=== PATIENT | female | born 1955 | race Two or more races ===

== ENCOUNTER 2023-11-05 01:01 | Inpatient (IN) | payer MEDICAID, OTHER ==
[2023-11-05] VITALS (16 sets, daily range): BP systolic 108–148; BP diastolic 61–80; PULSE 54–69; RESP 12–20; TEMP 97.9–98.6; O2SAT 93–98
[~2023-11-05] VITALS: Ht 165.1 cm; Wt 116.2 kg
[2023-11-05 01:44] LABS: Basophils # (auto) 0.1 10 ^3/uL (0-0.2); Basophils % (auto) 1.2 % (0.0-2.0); Eosinophils # (auto) 0.1 10 ^3/uL (0-0.8); Eosinophils % (auto) 0.9 % (0.0-7.0); Hematocrit 44.6 % (36.0-46.0); Hemoglobin 15.3 g/dL (12.2-16.2); Lymphocytes # (auto) 1.2 10 ^3/uL (0.4-5.4); Lymphocytes % (auto) 14.6 % (10.0-50.0); Mean Corpuscular Hemoglobin 31.8 pg (28.0-32.0); Mean Corpuscular Hgb Conc. 34.4 g/dL (32.0-36.0); Mean Corpuscular Volume 92.4 fL (80.0-100.0); Monocytes # (auto) 0.5 10 ^3/uL (0-1.3); Monocytes % (auto) 5.6 % (0.0-12.0); Neutrophils # (auto) 6.5 10 ^3/uL (1.6-8.6); Neutrophils % (auto) 77.7 % (37.0-80.0); Nucleated Red Blood Cells % 0.1 %; Red Blood Cells 4.83 10^6/uL (4.0-5.20); Red Cell Distribution Width 14.8 % (11.8-14.3); White Blood Cell 8.4 10^3/uL (4.4-10.8)
[2023-11-05 01:57] LABS: Alanine Aminotransferase 12 U/L (7-40); Albumin 4.2 g/dL (3.2-4.8); Alkaline Phosphatase 67 U/L (46-116); Anion Gap 6 (5-15); Aspartate Aminotransferase 11 U/L (13-40); BUN/Creatinine Ratio 12.6 (10.0-20.0); Bilirubin, Total 0.5 mg/dL (0.2-1.0); Blood Urea Nitrogen 13 mg/dL (9-23); Calcium 9.6 mg/dL (8.7-10.4); Carbon Dioxide 26 mmol/L (20-30); Chloride 106 mmol/L (98-107); Glucose 107 mg/dL (74-106); Potassium 4.6 mmol/L (3.5-5.1); Sodium 138 mmol/L (136-145); Total Protein 6.7 g/dL (5.7-8.2)
[2023-11-05 02:05] LABS: INR 0.97 (0.9-1.15); Prothrombin Time 10.3 sec (9.3-11.8)
[2023-11-05] MEDS: METOPROLOL TARTRATE 1MG/1ML-5ML VIAL IV ONE (02:30)
[2023-11-05] MEDS: ENOXAPARIN SOD 100 MG/1 ML SYRINGE SC ONE (03:01)
[2023-11-05] MEDS: NITROGLYCERIN 2% OINT 1GM PKG TD ONE (03:03)
[2023-11-05] MEDS: CLOPIDOGREL BISULFATE 75 MG TAB PO ONE (08:56)
[2023-11-05] MEDS: ASPirin 325 MG TAB PO ONE (08:56)
[2023-11-05] MEDS ORDERED: DOCUSATE SOD 100 MG CAP PO PRN (09:30)
[2023-11-05] MEDS ORDERED: MORPHINE SULFATE INJ 2 MG/ml SYRG IV PRN (09:30)
[2023-11-05] MEDS ORDERED: NITROGLYCERIN 0.4 MG SL TAB SL PRN (09:30)
[2023-11-05] MEDS ORDERED: ONDANSETRON HCL 4 MG/2 ML VIAL IV PRN (09:30)
[2023-11-05] MEDS ORDERED: TEMAZEPAM 15 MG CAP PO PRN (09:30)
[2023-11-05] MEDS: LIDOCAINE 2%HCL (LOCAL ANESTH.) INJ 20ML MDV ONE (10:31)
[2023-11-05] MEDS: ANGIOMAX 250 MG VIAL IV ONE (10:50)
[2023-11-05] MEDS: HEPARIN SODIUM (PORCINE) 5000 UNITS/ML 1ML VIAL ONE (10:51)
[2023-11-05] MEDS: MIDAZOLAM HCL 2MG/2ML 2ml VIAL (1mg/ml) ONE (10:51)
[2023-11-05] MEDS: SODIUM CHL 0.9% 50 ML ONE (10:51)
[2023-11-05] MEDS: fentaNYL CITRATE 100 MCG/2 ML VL ONE (10:51)
[2023-11-05] MEDS: VERAPAMIL 2.5MG/ML INJ 2ML VIAL IV ONE (10:51)
[2023-11-05] MEDS: IODIXANOL 320MG/ML 100ML BTL IV ONE ×2 (10:56→11:33)
[2023-11-05 12:33] LABS: Triglycerides 103 mg/dL (< 150)
[2023-11-05 12:34] LABS: LDL Cholesterol 94 mg/dL (< 100)
[2023-11-05 12:35] LABS: Cholesterol 144 mg/dL (< 200); HDL Cholesterol 42 mg/dL (40-59)
[2023-11-05] MEDS ORDERED: HEPARIN DRIP/D5W 100UNITS/ML 250 ML IV SCH (13:00)
[2023-11-05] MEDS: PANTOPRAZOLE 40 MG/10 ML VIAL INJ IV SCH (16:21)
[2023-11-06] VITALS (7 sets, daily range): BP systolic 118–140; BP diastolic 54–81; PULSE 54–69; RESP 20; TEMP 98.3–98.9; O2SAT 93–98
[2023-11-06 06:45] LABS: Basophils # (auto) 0.1 10 ^3/uL (0-0.2); Eosinophils # (auto) 0.1 10 ^3/uL (0-0.8); Eosinophils % (auto) 1.3 % (0.0-7.0); Hematocrit 41.9 % (36.0-46.0); Hemoglobin 14.3 g/dL (12.2-16.2); Lymphocytes # (auto) 1.9 10 ^3/uL (0.4-5.4); Lymphocytes % (auto) 26.4 % (10.0-50.0); Mean Corpuscular Hemoglobin 31.5 pg (28.0-32.0); Mean Corpuscular Hgb Conc. 34.1 g/dL (32.0-36.0); Mean Corpuscular Volume 92.5 fL (80.0-100.0); Monocytes # (auto) 0.7 10 ^3/uL (0-1.3); Monocytes % (auto) 9.6 % (0.0-12.0); Neutrophils # (auto) 4.5 10 ^3/uL (1.6-8.6); Neutrophils % (auto) 61.7 % (37.0-80.0); Nucleated Red Blood Cells % 0.1 %; Red Blood Cells 4.54 10^6/uL (4.0-5.20); Red Cell Distribution Width 14.4 % (11.8-14.3); White Blood Cell 7.2 10^3/uL (4.4-10.8)
[2023-11-06 08:49] LABS: Anion Gap 6 (5-15); Carbon Dioxide 27 mmol/L (20-30); Chloride 108 mmol/L (98-107); Potassium 4.1 mmol/L (3.5-5.1); Sodium 141 mmol/L (136-145)
[2023-11-06 08:50] LABS: Calcium 9.5 mg/dL (8.7-10.4)
[2023-11-06 08:54] LABS: Glucose 99 mg/dL (74-106)
[2023-11-06 08:55] LABS: BUN/Creatinine Ratio 11.6 (10.0-20.0); Blood Urea Nitrogen 11 mg/dL (9-23)
[2023-11-06] MEDS: ATORVASTATIN 20 MG TAB PO ONE (08:59)
[2023-11-06] MEDS: CLOPIDOGREL BISULFATE 75 MG TAB PO SCH (09:00)
[2023-11-06] MEDS: ASPirin 81 mg TAB PO SCH (09:00)
[2023-11-06] MEDS: SACUBITRIL-VALSARTAN 24mg/26mg TAB PO SCH (10:40)
[2023-11-06] MEDS: METOPROLOL SUCCINATE XL 50 MG TAB PO ONE (13:34)
[2023-11-06] MEDS ORDERED: CLOP75TA70 PO (13:40)
[2023-11-06] MEDS ORDERED: NITR0.4S29 SL (13:40)
[2023-11-06] MEDS ORDERED: PANT40TA2 PO (13:40)
[2023-11-06] MEDS ORDERED: ASPI-325 PO (13:40)
[2023-11-06] MEDS ORDERED: EMPA1TAB PO (13:40)
[2023-11-06] MEDS ORDERED: ATOR20TA50 PO (13:40)
[2023-11-06] MEDS ORDERED: SACU1TAB PO (13:40)
[2023-11-06] MEDS ORDERED: METO-6 PO (13:40)
[2023-11-06] MEDS ORDERED: ATORVASTATIN 20 MG TAB PO SCH (22:00)
[2023-11-07] MEDS ORDERED: EMPAGLIFLOZIN 10 MG TAB PO SCH (10:00)
[2023-11-07] MEDS ORDERED: METOPROLOL SUCCINATE XL 50 MG TAB PO SCH (10:00)
== END 2023-11-06 17:05 | disposition home or self-care (01) | DRG 174 ==
LOC: ER 01:01 → EDBD 01:01 → TELE 09:29 → TELE-WESTW 13:58
PROVIDERS: ADMIT Nurse Practitioner; ATTEND Nurse Practitioner
PROC: 027034Z Dilation of Coronary Artery, One Artery with Drug-eluting Intraluminal Device, Percutaneous Approach (ICD-10-PCS; principal; 2023-11-05)
PROC: B211YZZ Fluoroscopy of Multiple Coronary Arteries using Other Contrast (ICD-10-PCS; 2023-11-05)
PROC: 4A023N7 Measurement of Cardiac Sampling and Pressure, Left Heart, Percutaneous Approach (ICD-10-PCS; 2023-11-05)
PROC: 3E03317 Introduction of Other Thrombolytic into Peripheral Vein, Percutaneous Approach (ICD-10-PCS; 2023-11-05)
PROC: B215YZZ Fluoroscopy of Left Heart using Other Contrast (ICD-10-PCS; 2023-11-05)
DX: I21.4 Non-ST elevation (NSTEMI) myocardial infarction (principal); I11.0 Hypertensive heart disease with heart failure; I50.32 Chronic diastolic (congestive) heart failure; E66.01 Morbid (severe) obesity due to excess calories; I25.10 Atherosclerotic heart disease of native coronary artery without angina pectoris; F17.210 Nicotine dependence, cigarettes, uncomplicated; E78.5 Hyperlipidemia, unspecified; Z68.41 Body mass index [BMI] 40.0-44.9, adult; Z82.49 Family history of ischemic heart disease and other diseases of the circulatory system; R73.03 Prediabetes
CPT/HCPCS: 36415; 71045; 80048; 80053; 80061; 83036; 84443; 84484; 85025; 85610; 85730; 86850; 86900; 86901; 92941; 93005; 93306; 93458; 96372; 96374; 99152; C1874; G0378; J2250; J2470; Q9967

== ENCOUNTER 2023-11-11 09:07 | Emergency (ER) | payer MEDICAID ==
[~2023-11-11] VITALS: Ht 165.1 cm; Wt 112.4 kg
[~2023-11-11 09:07] MED LIST: ASPI-325 PO; ATOR20TA50 PO; CLOP75TA70 PO; EMPA1TAB PO; METO-6 PO; NITR0.4S29 SL; PANT40TA2 PO; SACU1TAB PO
[2023-11-11 09:58] VITALS: BP 144/77; PULSE 85; RESP 20; TEMP 99; O2SAT 95
[2023-11-11] MEDS ORDERED: HYDRX10T PO (10:09)
== END 2023-11-11 10:16 | disposition home or self-care (01) ==
LOC: ER 09:07
DX: T78.40XA Allergy, unspecified, initial encounter (principal); E11.9 Type 2 diabetes mellitus without complications; I10 Essential (primary) hypertension; Z79.899 Other long term (current) drug therapy; Z79.2 Long term (current) use of antibiotics; X58.XXXA Exposure to other specified factors, initial encounter